=== PATIENT | male | born 1975 | race Caucasian/White ===

== ENCOUNTER 2021-12-08 17:03 | Emergency (ER) | payer SELFPAY ==
[2021-12-08 17:08] VITALS: BP 171/124; PULSE 140; RESP 24; TEMP 37; O2SAT 98
--- NOTE | 2021-12-08 17:27 | ED.GENADUL_ITS ---
Discharge Plan Disposition Patient Disposition: STILL A PATIENT Condition: Stable Discharge Details Chief Complaint: PsychEval Clinical Impression: Alcohol intoxication, Depression ED Provider: Octaviano Parks Medical Decision Making 46 yo male with hx of chronic alcohol abuse who recently was placed in the area as he is homeless by the state, comes in with complaints of feeling depressed, thoughts of self harm and seeking alcoholism treatment. He states he was sober for over a month and relpased recently. He has been having vague thoughts of si, doesn't voice a plan to me when asked. He states he last had alcohol 30 minutes or so ago and states I just can't stop. He denies drug use and denies attempts to harm himself. He is crying persistently throughout the exam. He has clear speech, no signs of trauma, perrl, steady gait and no focal deficits. he is tachycardic but has no tremors on exam. Suspect this is primarily alcohol induced depression, given the tachycardia will obtain cbc, cmp, alcohol level and treat with fluids and ativan and reassess. Will need mental health evaluation when sober. pt stable, hr 120 and sinus on the monitor, will give an additional liter and monitor, he has no complaints other than his depression currently, no longer crying or tearful. Will have to be monitored until he is closer to sobriety for mental health to assess. Differential Diagnosis Differential Diagnosis: depression, alcohol abuse Lab Data Lab results reviewed: Yes I reviewed the patient's lab results. HPI General Mode of arrival: ambulatory . Date/Time Provider Initiated Documentation: 12/08/21 17:13 . Limitations to Documentation: no limitations . Information obtained by: patient . History of Present Illness 46 year old M presents to the emergency department with the chief complaint of depressed, described as moderate, and it has been constant. No relieving factors improve symptom(s), No exacerbating factors reported . Patient did receive the following treatments prior to arrival, none General Stated Complaint: PsychEval MARYANN: 2 Review of Systems All systems reviewed & are unremarkable except as noted in HPI and below Constitutional Constitutional: Denies chills, Denies fever(s) and Denies weakness Cardiovascular Cardiovascular: Denies chest pain and Denies dyspnea Respiratory Respiratory: Denies cough and Denies dyspnea Gastrointestinal Gastrointestinal: Denies abdominal pain, Denies nausea and Denies vomiting Integumentary/Breasts Skin/Breast: Denies rash Neurologic Neurologic: Denies weakness PFSH All Active Problems (Updated 12/08/21 @ 19:14 by Octaviano Parks MD) Alcohol intoxication (Acute) Depression (Chronic) Social History Smoking/Tobacco Use Status: Current every day Tobacco Type: smokeless tobacco Smoking risk assessment performed?: Yes Exam Const Orientation: alert HENMT Head: normal to inspection Ears: external ears normal General nose exam: external nose normal Mouth: moist mucous membranes Eyes General: appearance normal, both eyes and all related structures Neck Neck: normal visual inspection Resp Effort & Inspection: normal respiratory effort and able to speak in complete sentences Cardio Rate: regular rate Skin General skin exam: no rashes or lesions noted Neuro General: patient alert and patient oriented x3 Extrem General: normal to inspection Psych Appearance: other (crying constantly) Speech and Movement: speech clear Course Vital Signs Vital signs: Vital Signs Temperature 37.0 C 12/08/21 17:08 Pulse 140 H 12/08/21 17:08 Respiratory Rate 24 12/08/21 17:08 Blood Pressure 171/124 H 12/08/21 17:08 Pulse Oximetry 98 12/08/21 17:08 Temperature 37.0 C 12/08/21 17:08 Temperature Source Tympanic 12/08/21 17:08 Pulse 140 H 12/08/21 17:08 Respiratory Rate 24 12/08/21 17:08 Blood Pressure 171/124 H 12/08/21 17:08 Blood Pressure Position Sitting 12/08/21 17:08 Pulse Oximetry 98 12/08/21 17:08 Oxygen Delivery Method Room Air 12/08/21 17:08 Oxygen Flow Rate 0 12/08/21 17:08
[2021-12-08 18:10] LABS: Abs Immature Grans 0.02 10^3/uL (0.0-0.06); Absolute Basophil Count 0.05 10^3/uL (0.0-0.2); Absolute Eosinophil Count 0.05 10^3/uL (0.0-0.7); Absolute Lymphocyte Count 2.39 10^3/uL (1.2-3.4); Absolute Monocyte Count 0.33 10^3/uL (0.1-0.8); Absolute Neutrophil Count 2.48 10^3/uL (1.2-6.7); Basophils % 0.9; Eosinophils % 0.9; HCT 43.5 % (40.0-50.0); HGB 15.4 g/dL (13.5-17.5); Immature Grans % 0.4; Lymphocytes % 44.9; MCH 30.4 pg (27.0-33.0); MCHC 35.4 % (32.0-36.0); MCV 86 fL (80-95); MPV 8.9 fL (8.0-11.0); Monocytes % 6.2; Neutrophils % 46.7; Platelet Count 312 10^3/uL (130-400); RBC 5.06 10^6/uL (4.36-5.78); RDW 13.3 % (11.8-14.1); RDW-SD 41.6 fL; WBC 5.32 10^3/uL (4.4-10.8)
[2021-12-08] MEDS: LORazepam 2 MG/ML VIAL 1 MG IVP (18:12)
[2021-12-08] MEDS: Normal Saline 1,000 ML 1000 ML IV (18:13)
[2021-12-08 18:32] LABS: ALT 60 U/L (16-63); AST 49 U/L (15-37); Albumin 3.3 g/dL (3.4-5.0); Alkaline Phosphatase 107 U/L (46-116); Anion Gap 11.1 mmol/L (3-11); BUN 15 mg/dL (7-18); Bilirubin, Total 0.3 mg/dL (0.2-1.0); CO2 26.9 mmol/L (21.0-32.0); CREATININE 0.9 mg/dL (0.70-1.30); Calcium 8.5 mg/dL (8.5-10.1); Chloride 102 mmol/L (98-107); Estimated GFR 105.35 (mL/min/1.73m2); Glucose 120 mg/dL (74-106); Magnesium 2.2 mg/dL (1.8-2.4); Potassium 4.1 mmol/L (3.5-5.1); Sodium 140 mmol/L (136-145); TSH (W/Ref FT4) 1.38 uIU/mL (0.36-3.74); Total Protein 7.8 g/dL (6.4-8.2)
[2021-12-08 18:34] LABS: ETHANOL BLOOD 303.2 mg/dL (<10)
[2021-12-08 18:39] LABS: Acetaminophen < 2 ug/mL (10-30); Salicylate < 2.8 mg/dL (<2.8)
[2021-12-08 19:28] LABS: Bilirubin Negative (Negative); Blood Trace-intact (Negative); Clarity Clear (Clear); Glucose Negative (Negative); Ketones Negative (Negative); Leukocyte Esterase Negative (Negative); Nitrite Negative (Negative); Specific Gravity >= 1.030 (1.005-1.025); Urobilinogen 0.2 EU/dL (Up TO 0.2)
[2021-12-08 19:40] LABS: Bacteria Negative HPF (Negative); C & S Indicated? No; Casts Negative LPF (Negative); Crystals Negative HPF (Negative); Epithelial Cells Rare HPF (Negative); Mucus Negative (Negative); RBC 0-2 HPF (0-2); WBC 0-2 HPF (0-5)
[2021-12-08 19:44] LABS: *AMPHETAMINES SCREEN URINE Negative (Negative); *BARBITURATES SCREEN URINE Negative (Negative); *BENZODIAZEPINES SCREEN URINE Negative (Negative); Cannabinoids THC Negative (Negative); Cocaine Screen,Urine Negative (Negative); METHADONE URINE SCREEN Negative (Negative); OPIATES URINE SCREEN Negative (Negative)
[2021-12-08 19:45] LABS: Tricyclic Antidepressants Negative (Negative)
[2021-12-08 22:24] VITALS: BP 170/123; PULSE 111; TEMP 37; O2SAT 93
[2021-12-08] MEDS: LORazepam 1 MG TAB PO (22:47)
== END 2021-12-08 23:34 | disposition home or self-care (01) ==
PROVIDERS: Emergency Medicine; Emergency Provider Emergency Medicine
DX: F32.A Depression, unspecified (principal); F10.129 Alcohol abuse with intoxication, unspecified; Y90.8 Blood alcohol level of 240 mg/100 ml or more
CPT/HCPCS: 80053; 80307; 96361; 96374; 99284; 80320; 80329; 81003; 81015; 83735; 84443; 85025; J2060

== ENCOUNTER 2022-01-07 15:11 | Emergency (ER) | payer SELFPAY ==
[2022-01-07 15:15] VITALS: BP 163/96; PULSE 124; RESP 18; TEMP 36.6; O2SAT 97
--- NOTE | 2022-01-07 15:33 | NUR.NOTE ---
Nursing Note: Patient stated to Access that he could not wait any longer and he left.
== END 2022-01-07 15:31 | disposition left against medical advice (07) ==
LOC: ER 15:17
PROVIDERS: PCP Family Medicine
DX: Z53.21 Procedure and treatment not carried out due to patient leaving prior to being seen by health care provider (principal)

== ENCOUNTER 2022-01-07 16:15 | Emergency (ER) | payer SELFPAY ==
[2022-01-07 16:24] VITALS: BP 144/94; PULSE 127; RESP 18; TEMP 36.9; O2SAT 91
[2022-01-07 17:58] VITALS: BP 93/72; PULSE 101; RESP 20; O2SAT 96
--- NOTE | 2022-01-07 18:24 | W.ED.GENAD ---
Discharge Plan Disposition Patient Disposition: Home Condition: Stable Discharge Details Clinical Impression: Alcohol intoxication Primary Care Provider: Colin Scott ED Provider: Rosio Kathleen Home Meds and New Rx's Prescriptions: New chlordiazepoxide HCl 25 mg capsule 25 mg PO TID PRN (Reason: alcohol withdrawal) Qty: 7 0RF Rx Instructions: Take 1 tablets 3 times a day for 1 day, take 1 tablet 2 times a day for 2 days, take 1 tablet a day x2 days Discharge Instructions Instructions: Alcohol Intoxication (ED) Additional Instructions: Take the Librium as directed. Do not drink alcohol with this. Follow up with primary care provider in 3-5 days. Return to ED sooner if any worsening or concerns. Increase oral fluids. Referrals: Colin Scott [Primary Care Provider] - 3 days Discharge Data Discharge Date/Time-TO BE ENTERED AT DEPARTURE: 01/07/22 21:09 Medical Decision Making 46-year-old male presents to the ER chief complaint of possible alcohol withdrawal and alcohol intoxication. Patient reports that he was sober for approximately 30 days and recently came off a 3-day binge. Last EtOH intake was around noon today. He reports he did take his blood pressure medication and Seroquel 3 PM. Denies unusual tremors, he reports nausea and vomiting, denies any diarrhea. He reports that he has been drinking constantly liquor and wine. He has a past medical history of alcohol ideation and depression he reports that he did call the defensive line coach earlier today he is not interested in rehab however he has had rehab before. He was brought here by a AA sponser. Labs ordered including H&H, Tylenol, salicylate level, liter fluid , milligram of lorazepam and 4 mg Zofran. CIWA is approximately 7 at this time. Will consider sending patient home with Librium as he is taking this before. At this time patient appears intoxicated. Does not appear acutely in withdrawal symptoms however patient is at risk for withdrawing he states he has never had a seizure from withdrawal. Labs are largely unremarkable, ETOH level is 21. Patient has taken Librium taper in the past and is comfortable and willing to adhere to this. Librium taper prescribed and patient given two tablets to go. Patient discharged with a ride. Lab Data Lab results reviewed: Yes I reviewed the patient's lab results. Labs: Laboratory Tests Range/Units 01/07/22 01/07/22 01/07/22 18:50 18:50 19:26 WBC (4.4-10.8) 10^3/uL RBC (4.36-5.78) 10^6/uL Hgb (13.5-17.5) g/dL Hct (40.0-50.0) % MCV (80-95) fL MCH (27.0-33.0) pg MCHC (32.0-36.0) % RDW (11.8-14.1) % Plt Count (130-400) 10^3/uL MPV (8.0-11.0) fL Immature Gran % Neutrophils % Lymphocytes % Monocytes % Eosinophils % Basophils % Nucleated RBC % (0.0-0.3) % Absolute Neutrophils (1.2-6.7) 10^3/uL Absolute Lymphocytes (1.2-3.4) 10^3/uL Absolute Monocytes (0.1-0.8) 10^3/uL Absolute Eosinophils (0.0-0.7) 10^3/uL Absolute Basophils (0.0-0.2) 10^3/uL Sodium (136-145) mmol/L Potassium (3.5-5.1) mmol/L Chloride (98-107) mmol/L Carbon Dioxide (21.0-32.0) mmol/L Anion Gap (3-11) mmol/L BUN (7-18) mg/dL Creatinine (0.70-1.30) mg/dL Est GFR (CKD-EPI 2020) (mL/min/1.73m2) Glucose (74-106) mg/dL Calcium (8.5-10.1) mg/dL Magnesium (1.8-2.4) mg/dL Total Bilirubin (0.2-1.0) mg/dL AST (15-37) U/L ALT (16-63) U/L Alkaline Phosphatase (46-116) U/L Total Protein (6.4-8.2) g/dL Albumin (3.4-5.0) g/dL Urine Color (Yellow) Yellow Urine Clarity (Clear) Clear Urine pH (5-8) 6.0 Ur Specific [place] (1.005-1.025) >= 1.030 H Urine Protein (Negative) mg/dL 30 H Urine Ketones (Negative) mg/dL Trace H Urine Blood (Negative) Negative Urine Nitrite (Negative) Negative Urine Bilirubin (Negative) Negative Urine Urobilinogen (Up TO 0.2) EU/dL 0.2 Ur Leukocyte Esterase (Negative) Negative Urine RBC (0-2) HPF 0-2 Urine WBC (0-5) HPF 0-2 Ur Epithelial Cells (Negative) HPF Rare Urine Crystals (Negative) HPF Few Amorphous Urine Bacteria (Negative) HPF Rare Urine Casts (Negative) LPF 3-5 Hyaline Urine Mucus (Negative) Heavy Ur Culture Indicated? No Urine Glucose (Negative) mg/dL Negative Salicylates (<2.8) mg/dL Urine Opiates Screen (Negative) Negative Acetaminophen (10-30) ug/mL Ur Barbiturates Screen (Negative) Negative Ur Tricyclics Screen (Negative) Negative Ur Amphetamines Screen (Negative) Negative U Benzodiazepines Scrn (Negative) Negative Urine Cocaine Screen (Negative) Negative Ur THC Screen (Negative) Negative Ethyl Alcohol (<10) mg/dL 21.8 H Range/Units 01/07/22 01/07/22 01/07/22 19:26 19:26 19:42 WBC (4.4-10.8) 10^3/uL 9.24 RBC (4.36-5.78) 10^6/uL 4.85 Hgb (13.5-17.5) g/dL 14.4 Hct (40.0-50.0) % 41.4 MCV (80-95) fL 85 MCH (27.0-33.0) pg 29.7 MCHC (32.0-36.0) % 34.8 RDW (11.8-14.1) % 13.4 Plt Count (130-400) 10^3/uL 298 MPV (8.0-11.0) fL 9.3 Immature Gran % 0.2 Neutrophils % 57.5 Lymphocytes % 34.3 Monocytes % 7.6 Eosinophils % 0.1 Basophils % 0.3 Nucleated RBC % (0.0-0.3) % 0.0 Absolute Neutrophils (1.2-6.7) 10^3/uL 5.31 Absolute Lymphocytes (1.2-3.4) 10^3/uL 3.17 Absolute Monocytes (0.1-0.8) 10^3/uL 0.70 Absolute Eosinophils (0.0-0.7) 10^3/uL 0.01 Absolute Basophils (0.0-0.2) 10^3/uL 0.03 Sodium (136-145) mmol/L 137 Potassium (3.5-5.1) mmol/L 3.2 L Chloride (98-107) mmol/L 101 Carbon Dioxide (21.0-32.0) mmol/L 26.1 Anion Gap (3-11) mmol/L 9.9 BUN (7-18) mg/dL 19 H Creatinine (0.70-1.30) mg/dL 1.0 Est GFR (CKD-EPI 2020) (mL/min/1.73m2) 92.84 Glucose (74-106) mg/dL 105 Calcium (8.5-10.1) mg/dL 8.4 L Magnesium (1.8-2.4) mg/dL 2.0 Total Bilirubin (0.2-1.0) mg/dL 0.5 AST (15-37) U/L 31 ALT (16-63) U/L 45 Alkaline Phosphatase (46-116) U/L 82 Total Protein (6.4-8.2) g/dL 6.8 Albumin (3.4-5.0) g/dL 3.0 L Urine Color (Yellow) Urine Clarity (Clear) Urine pH (5-8) Ur Specific [place] (1.005-1.025) Urine Protein (Negative) mg/dL Urine Ketones (Negative) mg/dL Urine Blood (Negative) Urine Nitrite (Negative) Urine Bilirubin (Negative) Urine Urobilinogen (Up TO 0.2) EU/dL Ur Leukocyte Esterase (Negative) Urine RBC (0-2) HPF Urine WBC (0-5) HPF Ur Epithelial Cells (Negative) HPF Urine Crystals (Negative) HPF Urine Bacteria (Negative) HPF Urine Casts (Negative) LPF Urine Mucus (Negative) Ur Culture Indicated? Urine Glucose (Negative) mg/dL Salicylates (<2.8) mg/dL < 2.8 Urine Opiates Screen (Negative) Acetaminophen (10-30) ug/mL < 2 Ur Barbiturates Screen (Negative) Ur Tricyclics Screen (Negative) Ur Amphetamines Screen (Negative) U Benzodiazepines Scrn (Negative) Urine Cocaine Screen (Negative) Ur THC Screen (Negative) Ethyl Alcohol (<10) mg/dL Sign Out No HPI General Mode of arrival: ambulatory. Date/Time Provider Initiated Documentation: 01/07/22 16:16. Limitations to Documentation: no limitations. Information obtained by: patient, RN notes reviewed and old records reviewed. HPI Narrative: 46-year-old male presents to the ER chief complaint of possible alcohol withdrawal and alcohol intoxication. Patient reports that he was sober for approximately 30 days and recently came off a 3-day binge. Last EtOH intake was around noon today. He reports he did take his blood pressure medication and Seroquel 3 PM. Denies unusual tremors, he reports nausea and vomiting, denies any diarrhea. He reports that he has been drinking constantly liquor and wine. He has a past medical history of alcohol ideation and depression he reports that he did call the defensive line coach earlier today he is not interested in rehab however he has had rehab before. He was brought here by a AA sponser. Related Data Home Medications Medication Instructions Recorded Confirmed chlordiazepoxide HCl 25 mg capsule 25 mg PO TID PRN alcohol 01/07/22 withdrawal #7 caps Previous Rx's Medication Instructions Recorded chlordiazepoxide HCl 25 mg capsule 25 mg PO TID PRN alcohol 01/07/22 withdrawal #7 caps Allergies Allergy/AdvReac Type Severity Reaction Status Date / Time No Known Allergies Allergy Unverified 01/07/22 16:26 General Stated Complaint: ETOHWithdr AMRYANN: 3 Review of Systems All systems reviewed & are unremarkable except as noted in HPI and below PFSH Social History Smoking/Tobacco Use Status: Current every day Tobacco Type: smokeless tobacco Smoking risk assessment performed?: Yes Alcohol Intake: current Alcohol Intake frequency: 0-2 drinks per day Drug use: Never Substance use type: does not use Do you feel safe at home: Yes Exam Narrative Exam Narrative: Constitutional: Alert and oriented x3. Appears stated age. Normal body habitus. Injected eyes, appears flushed. Head: Normocephalic, no trauma. Eyes: Pupils PERRL, Red reflex noted, EOM's intact. Eyelids symmetrical without lesions, discharge, or swelling. ENT: Bilateral TM's WNL, External ear normal to inspection, no mastoid TTP, swelling, or erythema, Nasal turbinates WNL, no nasal discharge. Normal dentition, Posterior pharynx WNL, no exudate. Chest: RRR, Normal S1, S2, distal pulses intact. Resp: Lungs clear to auscultation bilaterally, no wheezes, rales, or rhonchi. Abdomen: Soft, non-distended, Normoactive bowel sounds all 4 quads. Musculoskeletal: Normal gait, 5/5 strength to all four extremities. Skin: No suspicious rashes or lesions. Capillary refill less than 2 sec. Neurologic: Cranial nerves II-XII intact. Alert and oriented x 3. Motor: No deficits noted. Sensory: Intact bilaterally all 4 extremities. Reflexes: DTR's intact bilaterally.. No tremors noted. Denies any hallucinations. Hematologic/Lymphatic: No ecchymosis, no lymphadenopathy. Course Vital Signs Vital signs: Vital Signs Temperature 36.9 C 01/07/22 16:24 Pulse 127 H 01/07/22 16:24 Respiratory Rate 18 01/07/22 16:24 Blood Pressure 144/94 H 01/07/22 16:24 Pulse Oximetry 91 L 01/07/22 16:24 Temperature 36.9 C 01/07/22 16:24 Pulse 101 H 01/07/22 17:58 Respiratory Rate 20 01/07/22 17:58 Respiratory Effort Non-Labored 01/07/22 16:27 Blood Pressure 93/72 L 01/07/22 17:58 Pulse Oximetry 96 01/07/22 17:58 Oxygen Delivery Method Room Air 01/07/22 17:58 Oxygen Flow Rate 0 01/07/22 17:58 Pain Level 0 01/07/22 17:58 PAWSS Have you Been Recently Intoxicated or Drunk Within the Last 30 days?: Yes Have you Ever Experienced Previous Episodes of Alcohol Withdrawal?: Yes Have you ever Experienced Withdrawal Seizures?: No Have you ever Experienced Delirium Tremens(DT)s?: Yes Have you ever undergone Alcohol Rehabilitation Treatment (i.e, inpt ot outpatient treatment programs)?: Yes Have you ever Experienced Blackouts?: Yes Have you ever Combined Alcohol with other Downers within the last 90 days?: No Have you ever Combined Alcohol with any other Substance of Abuse during the last 90 days?: No Positive Blood Alcohol level on Presentation? [PCS.BAL]: Yes Evidence of Increased Autonomic Activity (i.e. HR>120, tremor, sweating, agitation, nausea)?: Yes Result: 7
[2022-01-07 19:05] LABS: Bilirubin Negative (Negative); Blood Negative (Negative); Clarity Clear (Clear); Glucose Negative (Negative); Ketones Trace mg/dL (Negative); Leukocyte Esterase Negative (Negative); Nitrite Negative (Negative); Specific Gravity >= 1.030 (1.005-1.025); Urobilinogen 0.2 EU/dL (Up TO 0.2)
[2022-01-07] MEDS: Ondansetron 4 MG/2 ML VIAL IVP (19:11)
[2022-01-07] MEDS: LORazepam 2 MG/ML VIAL 1 MG IVP (19:11)
[2022-01-07 19:16] LABS: *AMPHETAMINES SCREEN URINE Negative (Negative); *BARBITURATES SCREEN URINE Negative (Negative); *BENZODIAZEPINES SCREEN URINE Negative (Negative); Bacteria Rare HPF (Negative); C & S Indicated? No; Cannabinoids THC Negative (Negative); Casts 3-5 Hyaline LPF (Negative); Cocaine Screen,Urine Negative (Negative); Crystals Few Amorphous HPF (Negative); Epithelial Cells Rare HPF (Negative); Mucus Heavy (Negative); OPIATES URINE SCREEN Negative (Negative); RBC 0-2 HPF (0-2); Tricyclic Antidepressants Negative (Negative); WBC 0-2 HPF (0-5)
[2022-01-07 19:34] LABS: Abs Immature Grans 0.02 10^3/uL (0.0-0.06); Absolute Basophil Count 0.03 10^3/uL (0.0-0.2); Absolute Eosinophil Count 0.01 10^3/uL (0.0-0.7); Absolute Lymphocyte Count 3.17 10^3/uL (1.2-3.4); Absolute Neutrophil Count 5.31 10^3/uL (1.2-6.7); Basophils % 0.3; Eosinophils % 0.1; HCT 41.4 % (40.0-50.0); HGB 14.4 g/dL (13.5-17.5); Immature Grans % 0.2; Lymphocytes % 34.3; MCH 29.7 pg (27.0-33.0); MCHC 34.8 % (32.0-36.0); MCV 85 fL (80-95); MPV 9.3 fL (8.0-11.0); Monocytes % 7.6; Neutrophils % 57.5; Platelet Count 298 10^3/uL (130-400); RBC 4.85 10^6/uL (4.36-5.78); RDW 13.4 % (11.8-14.1); RDW-SD 42.1 fL; WBC 9.24 10^3/uL (4.4-10.8)
[2022-01-07 19:49] LABS: ETHANOL BLOOD 21.8 mg/dL (<10)
[2022-01-07 19:53] LABS: ALT 45 U/L (16-63); AST 31 U/L (15-37); Alkaline Phosphatase 82 U/L (46-116); Anion Gap 9.9 mmol/L (3-11); BUN 19 mg/dL (7-18); Bilirubin, Total 0.5 mg/dL (0.2-1.0); CO2 26.1 mmol/L (21.0-32.0); Calcium 8.4 mg/dL (8.5-10.1); Chloride 101 mmol/L (98-107); Estimated GFR 92.84 (mL/min/1.73m2); Glucose 105 mg/dL (74-106); Potassium 3.2 mmol/L (3.5-5.1); Sodium 137 mmol/L (136-145); Total Protein 6.8 g/dL (6.4-8.2)
[2022-01-07 20:22] LABS: Salicylate < 2.8 mg/dL (<2.8)
[2022-01-07 20:23] LABS: Acetaminophen < 2 ug/mL (10-30)
[2022-01-07 20:47] VITALS: BP 93/71; PULSE 111; TEMP 37.1; O2SAT 96
[2022-01-07] MEDS: chlordiazePOXIDE 25 MG CAP 50 MG PO (20:53)
[2022-01-07 20:55] VITALS: PULSE 98; RESP 22; TEMP 37.1; O2SAT 99
== END 2022-01-07 21:09 | disposition home or self-care (01) ==
PROVIDERS: Emergency Provider Registered Nurse Emergency; PCP Family Medicine
DX: F10.129 Alcohol abuse with intoxication, unspecified (principal); F32.A Depression, unspecified; F17.290 Nicotine dependence, other tobacco product, uncomplicated; Y90.1 Blood alcohol level of 20-39 mg/100 ml
CPT/HCPCS: 80053; 80307; 96374; 96375; 99284; 80320; 80329; 81003; 81015; 83735; 85025; J2060; J2405

== ENCOUNTER 2023-03-17 13:33 | Outpatient (CLI) | payer SELFPAY ==
[2023-03-21 13:33] LABS: TB Interpretation Negative (Negative); TB1 Ag minus Nil 0.01 IU/ml; TB2 Ag minus Nil 0.01 IU/mL
[2023-03-26 12:18] LABS: Testosterone, Free 14.9 ng/dL (4.26-16.4); Testosterone, Total 335 ng/dL (240-950)
== END 2023-03-17 13:34 | disposition home or self-care (01) ==
LOC: LBO 13:33
PROVIDERS: PCP Family Medicine; Visit Provider Family Medicine
DX: F52.21 Male erectile disorder (principal); Z11.1 Encounter for screening for respiratory tuberculosis
CPT/HCPCS: 84402; 84403; 86480